=== PATIENT | female | born 1995 | race Caucasian/White ===

== ENCOUNTER 2018-08-09 14:00 | Outpatient (REF) | payer BC, SELFPAY ==
[2018-08-10 14:27] LABS: Chlamydia Result Negative; GC Result Negative; Specimen Description URINE
== END 2018-08-09 14:20 ==
LOC: LBN 14:00
PROVIDERS: Visit Provider Nurse Practitioner Family
DX: Z11.3 Encounter for screening for infections with a predominantly sexual mode of transmission (principal)
CPT/HCPCS: 87491; 87591

== ENCOUNTER 2019-11-08 07:33 | Outpatient (CLI) | payer OTHER, SELFPAY ==
[2019-11-08 08:04] LABS: HCT 42.5 % (36.0-46.0); HGB 13.8 g/dL (12.0-15.5); Mean Corp. HGB Concentration 32.5 g/dL (32.0-36.0); Mean Corpuscular Hemoglobin 30.7 pg (27.0-33.0); Mean Corpuscular Volume 94.4 fL (80-95); Mean Platelet Volume 10.8 fL (8.0-11.0); Platelet Count 224 x1000/uL (130-400); RBC Distribution Width 13.6 % (11.7-14.6); White Blood Cell Count 4.83 k/cumm (4.4-10.8)
[2019-11-08 08:48] LABS: Anion Gap 10.6 mmol/L (3-11); BUN 16 mg/dL (7-18); CO2 27.4 mmol/L (21.0-32.0); CREATININE 0.97 mg/dL (0.55-1.02); Calcium 8.6 mg/dL (8.5-10.1); Chloride 106 mmol/L (98-107); Glucose 91 mg/dL (74-106); Potassium 4.4 mmol/L (3.5-5.1); Sodium 144 mmol/L (136-145)
== END 2019-11-08 07:53 ==
PROVIDERS: PCP Student in an Organized Health Care Education/Training Program; Visit Provider Student in an Organized Health Care Education/Training Program
DX: R79.89 Other specified abnormal findings of blood chemistry (principal); Z86.2 Personal history of diseases of the blood and blood-forming organs and certain disorders involving the immune mechanism
CPT/HCPCS: 36415; 80048; 85027

== ENCOUNTER 2020-09-24 02:54 | Outpatient (CLI) | payer OTHER, SELFPAY ==
[2020-09-26 15:56] LABS: COVID-19 RT-PCR UVMMC Result Negative (Negative)
== END 2020-09-24 03:14 ==
PROVIDERS: PCP Student in an Organized Health Care Education/Training Program; Visit Provider Student in an Organized Health Care Education/Training Program
DX: Z11.59 Encounter for screening for other viral diseases (principal); Z01.818 Encounter for other preprocedural examination
CPT/HCPCS: U0003

== ENCOUNTER 2020-09-29 08:16 | Day surgery (SDC) | payer OTHER, SELFPAY ==
[2020-09-29 08:30] VITALS: BP 140/69; PULSE 87; RESP 18; TEMP 36.5; O2SAT 100
[2020-09-29] MEDS: Lactated Ringers 1,000 ML 80 ML IV (09:03)
--- NOTE | 2020-09-29 09:35 | W.PREOPHP ---
Date of service: 09/29/20 Time of Service: 09:39 History of Present Illness History of Present Illness Chief Complaint: Right Carpal Tunnel Syndrome Narrative: Rosaura is a 25yo who has been previously diagnosed with carpal tunnel syndrome bialterally. She has failed conservative options and desired to proceed with right then left carpal tunnel release. She has had no change to her health. No chest pain or shortness of breath. No sick contacts. COVID-19 test negative. Review of Systems All systems reviewed & are unremarkable except as noted in HPI and below PFSH Medical History Bilateral carpal tunnel syndrome Bilateral wrist pain Acute on chronic; Hx wearing wrist splints overnight. 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 B/L, R>>L. Chronic nonsuppurative otitis media Hypertension IUD surveillance (~08/30/18) Mirena .. Placed and followed by [facility] (good relationship with Nia Cardenas). Obesity Long Hx weight gain .. recent year of weight watchers has been successful, continuing. Surgical History Adenoidectomy History of wisdom tooth extraction Myringotomy w/ PE (pressure equalizing) tubes Family History Father Diabetes ESRD (end stage renal disease) on dialysis Renal cancer Social History Smoking/Tobacco Use Status: Never Smoking risk assessment performed?: Yes Alcohol Intake: current Alcohol Intake frequency: a few times a month Alcohol type: beer, wine and hard liquor Drug use: Never Substance use type: does not use Caregiver/Support person: No Household members: significant other Communication Needs: None current occupation: [employer] Do you think of yourself as: straight/heterosexual Current gender identity: female What type of physical activity do you participate in: none Duration: 30-45 minutes/day Frequency: 1-2 times per week Seatbelt use: always Water heater temp set <120 deg: Yes Working smoke detector in home: Yes Fire extinguisher in home: Yes Carbon monox detector in home: Yes Firearms in home: Yes Firearms unloaded and locked: Yes Do you feel safe at home: Yes Do you feel safe in your relationship?: Yes Female Reproductive History Menstrual control method: none and progestin IUCD (Mirena inserted by Terri LOPEZ [id number] EXP=11/2020) History History 0 Para Hx # Term Pregnancies Multiple births Hx # Pregnancies Ectopic pregnancies AB induced Hx Number of Living Children AB spontaneous Meds Home Medications and Allergies Home Medications Medication Instructions Recorded Confirmed Type multivitamin [Daily Multi-Vitamin] 1 ea PO DAILY 07/08/15 09/29/20 History levonorgestrel 20 mcg/24 hours (6 1 insert IY ONCE #1 each 08/30/18 09/29/20 Rx yrs) 52 mg intrauterine device nystatin 100,000 unit/gram topical 1 applic TP BID PRN gm 01/27/20 09/29/20 History ointment lisinopril 5 mg tablet 2.5 mg PO DAILY #90 tab 05/29/20 09/29/20 Rx Allergies Allergy/AdvReac Type Severity Reaction Status Date / Time clarithromycin [From Biaxin] Allergy A CHILD Verified 09/29/20 08:35 Exam Const General: cooperative, comfortable and no acute distress Nutritional Appearance: obese morbidly obese Orientation: alert, awake and oriented x3 Resp Auscultation: clear to auscultation bilaterally Cardio Rate: regular rate Rhythm: regular rhythm Extrem Other: Right wrist is without masses. No leasions or rashes. No atrophy. Decreased sensation in median nerve distribution. Results Last Vital Signs Temp 36.5 C 09/29/20 08:30 Pulse 87 09/29/20 08:30 Resp 18 09/29/20 08:30 BP 140/69 09/29/20 08:30 Pulse Ox 100 09/29/20 08:30
--- NOTE | 2020-09-29 09:44 | W.PM.DSUDISC ---
Discharge Plan Disposition Patient Disposition: HOME Condition: Good Discharge Details Reason For Visit: Right Carpal Tunnel Syndrome Attending Provider: Prasad Franco Primary Care Provider: Ester Vaz Home Meds and New Rx's Prescriptions: New acetaminophen 500 mg tablet 1,000 mg PO Q8H PRN (Reason: pain) Qty: 60 RF: 3 ibuprofen 600 mg tablet 600 mg PO TID PRN (Reason: pain) Qty: 30 RF: 3 Continued Mirena 20 mcg/24 hr (5 years) intrauterine device 1 insert IY ONCE Qty: 1 RF: 0 lisinopril 5 mg tablet 2.5 mg PO DAILY Qty: 90 RF: 3 nystatin 100,000 unit/gram ointment 1 applic TP BID PRNRF: 0 multivitamin [Daily Multi-Vitamin] 1 EACH tablet 1 ea PO DAILY RF: 0 Discharge Instructions Stand Alone Forms: Joan Martinez. Tunnel Release, DSU Post op Instructions Referrals: Prasad Franco MD [ [facility] STAFF PHYSICIAN] - Activity:: Elevate Remove Dressings/Wound Care:: 72 hours Shower/Bathe:: 72 hours Discharge Orders Discharge Orders: Discharge Order (Routine); Ordered 09/29/20 Ordered By: Prasad Franco Discharge Data Discharge Date/Time-TO BE ENTERED AT DEPARTURE: 09/29/20 10:58 Discharge Comment: Pt's belongings sent home w/ pt. DS: Diagnosis Discharge Diagnosis (1) Bilateral carpal tunnel syndrome: Status: Acute
[2020-09-29] MEDS: Sodium Bicarbonate 50 MEQ/50 ML VIAL (10:04)
[2020-09-29 10:45] VITALS: BP 141/69; PULSE 73; RESP 18; TEMP 36.7; O2SAT 100
--- NOTE | 2020-09-29 11:22 | ROE_ITS ---
Date of service: 09/29/20 Time of Service: 10:02 Operative Note Operative Note DATE OF PROCEDURE: 09/29/20 PRE-OP DIAGNOSIS: Right Carpal Tunnel Syndrome POST-OP DIAGNOSIS: same PROCEDURE: Right Endoscopic Carpal Tunnel Release SURGEON: Prasad Franco ANESTHESIA: GETVira ESTIMATED BLOOD LOSS: 0 PATHOLOGY: none sent TOURNIQUET TIME: 5 COMPLICATIONS: None Patient was transported to: same day Patient's condition: stable Indications: I have seen Rosaura in clinic for symptoms of carpal tunnel syndrome. The numbness, tingling, and pain limited function. Clinical exam findings confirmed the diagnosis of carpal tunnel syndrome. Nonoperative measures such as bracing, time, activity modifications had been tried but disability and pain persisted. I discussed carpal tunnel release with the patient. I reviewed the risks of the procedure to include, but not limited to, bleeding, infection, pain, stiffness, incomplete release, damage to nerves or vessels, persistent numbness, recurrence. Despite these risks, the patient elected to proceed. Findings: There was tightened carpal tunnel. This was dilated and released successfully with the endoscopic with increased space within the tunnel. The antebrachial fascia was released proximally freeing the median nerve at the wrist. Procedure Description: Rosaura was greeted in the preoperative holding area where the correct side was identified and marked. The consent was reviewed with the patient and signed. The history and physical was updated. All questions were answered. She was taken back to the operating room. The patient was placed into the supine position on the operating room table with the right arm on an arm board. A nonsterile tourniquet was placed high onto the arm. All bony prominences were well padded. Prophylactic antibiotics in the form of Cefazolin were admini stered. The right arm was then prepped with Chloraprep and draped in a standard fashion with stockinette and extremity drape. A timeout to confirm correct identity, side and site, procedure, allergies, anesthesia, and medical concerns was performed. The surgical site was marked in the volar wrist creases in line with the radial border of the fourth ray. This area was anesthetized with approximately 6cc of 1% Lidocaine. The limb was then exsanguinated with an Esmarch. The skin was incised with a 15 blade, approximately 1cm. The skin only was cut and the deeper tissue was dissected bluntly with a tenotomy scissor, avoiding passing nerve and venous structures. The fascia was penetrated and opened bluntly. A two-prong skin hook was placed under this proximal fascial edge. A series of hamate finders were used to identify and dilate the carpal tunnel. Synovial elevator was used to free synovial attachments to the underside of the transverse carpal ligament. My thumb was kept in the palm to valeriano the distal extent of the carpal tunnel and correctly position the hand. The Microaire endoscope was inserted without difficulty and without resistance. Excellent visualization showed horizontally running fibers of the transverse carpal ligament (TCL). The distal extent of the TCL was visualized and the end of the scope palpated with the thumb. The blade was elevated and withdrawn from distal to proximal. The TCL was split into two flaps. The endoscope was reinserted to confirm complete release and any remnant ligament was incised. The scope was withdrawn and the proximal aspect of the carpal tunnel was grossly inspected and appeared release with the median nerve visible. The antebrachial fascia at the level of the wrist was then freed from the overlying skin and then the underlying median nerve with blunt dissection. This was transected longitudinally for about 3cm proximal to the wrist incision. The wound was then irrigated with easy flow of irrigant distally and proximally. The incision was closed with a single 4-0 Nylon suture. The wound was dressed with Xeroform, Gauze, Kerlix and Juanito. The tourniquet was deflated with the initial dressing and held with some pressure. Blood flow returned easily to all digits with capillary refill less than 2 seconds. The patient tolerated the procedure well and was returned to the Same Day Surgery area in a stable condition suffering no known complication.
== END 2020-09-29 10:58 | disposition home or self-care (01) ==
PROVIDERS: PCP Student in an Organized Health Care Education/Training Program; Visit Provider Student in an Organized Health Care Education/Training Program
PROC: 01N54ZZ Release Median Nerve, Percutaneous Endoscopic Approach (ICD-10-PCS; CPT 29848; principal; 2020-09-29 10:30)
DX: G56.01 Carpal tunnel syndrome, right upper limb (principal)
CPT/HCPCS: 29848; J2001

== ENCOUNTER 2020-10-02 03:35 | Outpatient (CLI) | payer OTHER, SELFPAY ==
[2020-10-03 14:05] LABS: COVID-19 RT-PCR UVMMC Result Negative (Negative)
== END 2020-10-02 03:55 ==
PROVIDERS: PCP Student in an Organized Health Care Education/Training Program; Visit Provider Student in an Organized Health Care Education/Training Program
DX: Z11.52 Encounter for screening for COVID-19 (principal); Z01.818 Encounter for other preprocedural examination
CPT/HCPCS: U0003

== ENCOUNTER 2020-10-07 06:15 | Day surgery (SDC) | payer OTHER, SELFPAY ==
[2020-10-07 06:32] VITALS: BP 129/81; PULSE 86; RESP 16; TEMP 36.7; O2SAT 100
[2020-10-07] MEDS: Lactated Ringers 1,000 ML 80 ML IV (07:00)
--- NOTE | 2020-10-07 07:22 | HPE_ITS ---
Date of service: 10/07/20 Time of Service: 07:22 Assessment and Plan Assessment and plan (1) Bilateral carpal tunnel syndrome: Status: Acute Assessment and plan: Rosaura is a 25-year-old who has bilateral carpal tunnel syndrome. She has previously discussed this with me and we decided to proceed with bilateral carpal tunnel releases. She had a successful right carpal tunnel release a little over a week ago. She is looking forward to proceeding with the left side. I once again reviewed the risk of the procedure to include bleeding, infection, pain, stiffness, damage nerves and vessels, rachid ge to muscle and tendons, incomplete release, recurrence. Despite these risks, she elects to proceed. History of Present Illness History of Present Illness Chief Complaint: Left Carpal Tunnel Syndrome Narrative: Rosaura is a 25-year-old who I have seen previously for bilateral carpal tunnel syndrome. She elected to proceed with carpal tunnel releases. She had a successful right carpal tunnel release about 10 days ago. She is now looking forward to proceeding with the left side. She has no concerns. She had no issues with the left side. She denies any current issues with the wound. She had no complications anesthesia. She denies fevers or chills. Review of Systems All systems reviewed & are unremarkable except as noted in HPI and below PFSH Medical History Bilateral carpal tunnel syndrome Bilateral wrist pain Acute on chronic; Hx wearing wrist splints overnight. 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 B/L, R>>L. Chronic nonsuppurative otitis media Hypertension IUD surveillance (~08/30/18) Mirena .. Placed and followed by [facility] (good relationship with Nia Cardenas). Obesity Long Hx weight gain .. recent year of weight watchers has been successful, continuing. Surgical History Adenoidectomy History of carpal tunnel surgery History of wisdom tooth extraction Myringotomy w/ PE (pressure equalizing) tubes Family History Father Diabetes ESRD (end stage renal disease) on dialysis Renal cancer Social History Smoking/Tobacco Use Status: Never Smoking risk assessment performed?: Yes Alcohol Intake: current Alcohol Intake frequency: a few times a month Alcohol type: beer, wine and hard liquor Drug use: Never Substance use type: does not use Caregiver/Support person: No Household members: significant other Communication Needs: None current occupation: [employer] Do you think of yourself as: straight/heterosexual Current gender identity: female What type of physical activity do you participate in: none Duration: 30-45 minutes/day Frequency: 1-2 times per week Seatbelt use: always Water heater temp set <120 deg: Yes Working smoke detector in home: Yes Fire extinguisher in home: Yes Carbon monox detector in home: Yes Firearms in home: Yes Firearms unloaded and locked: Yes Do you feel safe at home: Yes Do you feel safe in your relationship?: Yes Female Reproductive History Menstrual control method: none and progestin IUCD (Mirena inserted by Terri LOPEZ [id number] EXP=11/2020) History History 0 Para Hx # Term Pregnancies Multiple births Hx # Pregnancies Ectopic pregnancies AB induced Hx Number of Living Children AB spontaneous Meds Home Medications and Allergies Home Medications Medication Instructions Recorded Confirmed Type multivitamin [Daily Multi-Vitamin] 1 ea PO DAILY 07/08/15 10/07/20 History levonorgestrel 20 mcg/24 hours (6 1 insert IY ONCE #1 each 08/30/18 10/07/20 Rx yrs) 52 mg intrauterine device nystatin 100,000 unit/gram topical 1 applic TP BID PRN gm 01/27/20 10/07/20 History ointment lisinopril 5 mg tablet 2.5 mg PO DAILY #90 tab 05/29/20 10/07/20 Rx acetaminophen 1,000 mg PO Q8H PRN #60 tab 09/29/20 10/07/20 Rx ibuprofen 600 mg PO TID PRN #30 tab 09/29/20 10/07/20 Rx Allergies Allergy/AdvReac Type Severity Reaction Status Date / Time clarithromycin [From Biaxin] Allergy A CHILD Verified 10/07/20 06:42 Exam Const General: cooperative, healthy appearing, comfortable and no acute distress Nutritional Appearance: average body habitus Orientation: alert, awake and oriented x3 Resp Effort & Inspection: normal respiratory effort Auscultation: clear to auscultation bilaterally Cardio Rate: regular rate Rhythm: regular rhythm Results Last Vital Signs Temp 36.7 C 10/07/20 06:32 Pulse 86 10/07/20 06:32 Resp 16 10/07/20 06:32 BP 129/81 10/07/20 06:32 Pulse Ox 100 10/07/20 06:32
--- NOTE | 2020-10-07 07:25 | PDOC.DSDIS_ITS ---
Discharge Plan Disposition Patient Disposition: HOME Condition: Good Discharge Details Reason For Visit: Left Carpal Tunnel Syndrome Attending Provider: Prasad Franco Primary Care Provider: Ester Vaz Home Meds and New Rx's Prescriptions: No Action Mirena 20 mcg/24 hr (5 years) intrauterine device 1 insert IY ONCE Qty: 1 RF: 0 lisinopril 5 mg tablet 2.5 mg PO DAILY Qty: 90 RF: 3 nystatin 100,000 unit/gram ointment 1 applic TP BID PRNRF: 0 multivitamin [Daily Multi-Vitamin] 1 EACH tablet 1 ea PO DAILY RF: 0 acetaminophen 500 mg tablet 1,000 mg PO Q8H PRN (Reason: pain) Qty: 60 RF: 3 ibuprofen 600 mg tablet 600 mg PO TID PRN (Reason: pain) Qty: 30 RF: 3 Discharge Instructions Stand Alone Forms: Joan Regalado Tunnel Release Referrals: Prasad Franco MD [ [facility] ST[facility]FF PHYSICIAN] - Activity:: Elevate Remove Dressings/Wound Care:: 72 hours Shower/Bathe:: 72 hours Diet:: As Tolerated Discharge Orders Discharge Orders: Discharge Order (Routine); Ordered 10/07/20 Ordered By: Prasad Franco DS: Diagnosis Discharge Diagnosis (1) Bilateral carpal tunnel syndrome: Status: Acute
[2020-10-07] MEDS: Sodium Bicarbonate 50 MEQ/50 ML VIAL (07:33)
--- NOTE | 2020-10-07 08:01 | W.PM.OP ---
Date of service: 10/07/20 Time of Service: 07:44 Operative Note Operative Note DATE OF PROCEDURE: 10/07/20 PRE-OP DIAGNOSIS: Left carpal tunnel syndrome POST-OP DIAGNOSIS: same PROCEDURE: Left Endoscopic Carpal Tunnel Release SURGEON: Prasad Franco ANESTHESIA: GETVira ESTIMATED BLOOD LOSS: 0 PATHOLOGY: none sent TOURNIQUET TIME: 6 COMPLICATIONS: None Patient was transported to: same day Patient's condition: stable Indications: I have seen Rosaura in clinic for symptoms of carpal tunnel syndrome. The numbness, tingling, and pain limited function. Clinical exam findings with nerve conduction tests confirmed the diagnosis of carpal tunnel syndrome. Nonoperative measures such as bracing, time, activity modifications had been tried but disability and pain persisted. I discussed carpal tunnel release with the patient. I reviewed the risks of the procedure to include, but not limited to, bleeding, infection, pain, stiffness, incomplete release, damage to nerves or vessels, persistent numbness, recurrence. Despite these risks, the patient elected to proceed. Findings: There was tightened carpal tunnel. This was dilated and released successfully with the endoscopic with increased space within the tunnel. The antebrachial fascia was released proximally freeing the median nerve at the wrist. Procedure Description: Rosaura was greeted in the preoperative holding area where the correct side was identified and marked. The consent was reviewed with the patient and signed. The history and physical was updated. All questions were answered. She was taken back to the operating room. The patient was placed into the supine position on the operating room table with the left arm on an arm board. A nonsterile tourniquet was placed high onto the arm. All bony prominences were well padded. Prophylactic antibiotics in the form of Cefazolin were administered. The left arm was then prepped with Chloraprep and draped in a standard fashion with stockinette and extremity drape. A timeout to confirm correct identity, side and site, procedure, allergies, anesthesia, and medical concerns was performed. The surgical site was marked in the volar wrist creases in line with the radial border of the fourth ray. This area was anesthetized with approximately 6cc of 1% Lidocaine. The limb was then exsanguinated with an Esmarch. The skin was incised with a 15 blade, approximately 1cm. The skin only was cut and the deeper tissue was dissected bluntly with a tenotomy scissor, avoiding passing nerve and venous structures. The fascia was penetrated and opened bluntly. A two-prong skin hook was placed under this proximal fascial edge. A series of hamate finders were used to identify and dilate the carpal tunnel. Synovial elevator was used to free synovial attachments to the underside of the transverse carpal ligament. My thumb was kept in the palm to valeriano the distal extent of the carpal tunnel and correctly position the hand. The Microaire endoscope was inserted without difficulty and without resistance. Excellent visualization showed horizontally running fibers of the transverse carpal ligament (TCL). The distal extent of the TCL was visualized and the end of the scope palpated with the thumb. The blade was elevated and withdrawn from distal to proximal. The TCL was split into two flaps. The endoscope was reinserted to confirm complete release and any remnant ligament was incised. The scope was withdrawn and the proximal aspect of the carpal tunnel was grossly inspected and appeared release with the median nerve visible. The antebrachial fascia at the level of the wrist was then freed from the overlying skin and then the underlying median nerve with blunt dissection. This was transected longitudinally for about 3cm proximal to the wrist incision. The wound was then irrigated with easy flow of irrigant distally and proximally. The incision was closed with a single 4-0 Nylon suture. The wound was dressed with Xeroform, Gauze, Kerlix and Juanito. The tourniquet was deflated with the initial dressing and held with some pressure. Blood flow returned easily to all digits with capillary refill less than 2 seconds. The patient tolerated the procedure well and was returned to the Same Day Surgery area in a stable condition suffering no known complication.
[2020-10-07 08:25] VITALS: BP 101/64; PULSE 78; RESP 16; TEMP 36.1; O2SAT 97
[2020-10-07 08:57] VITALS: BP 99/66; PULSE 86; RESP 16; TEMP 36.3; O2SAT 96
[2020-10-07 09:55] VITALS: BP 97/66; PULSE 79; RESP 16; TEMP 36.5; O2SAT 97
== END 2020-10-07 10:18 | disposition home or self-care (01) ==
PROVIDERS: PCP Student in an Organized Health Care Education/Training Program; Visit Provider Student in an Organized Health Care Education/Training Program
PROC: 01N54ZZ Release Median Nerve, Percutaneous Endoscopic Approach (ICD-10-PCS; CPT 29848; principal; 2020-10-07 07:30)
DX: G56.02 Carpal tunnel syndrome, left upper limb (principal)
CPT/HCPCS: 29848; 81025; J0690; J2001; J2405; J2704

== ENCOUNTER 2020-12-08 16:00 | Outpatient (REF) | payer OTHER, SELFPAY ==
--- NOTE | 2020-12-08 15:30 | PAPFT_PTH ---
PATIENT: Rosaura Lennon LOC: [facility] U#:[id number] AGE/SX: 25/F ROOM: RE12/08/[address]: Nia Cardenas NP : [id number] BED: DIS: 12/08/2020 SPEC #: [id number] RECD: 12/08/20 17:50 STATUS: CHAR FULTON #: [id number] LIZETH: 12/08/20 15:[address]: Nia Cardenas NP DEPT: [facility] Cytology RECD BY: María Lim ENTERED: 12/08/20 17:50 SP TYPE: PAPFT OTHR DR: Ester Vaz, DO Tissues: 1 - CX/ENDOCX FOR PAP SMEARS Procedures: PAP THIN PREP/UVM Screening Comments: [id number]
== END 2020-12-08 16:01 | disposition home or self-care (01) ==
LOC: LBN 16:00
PROVIDERS: PCP Student in an Organized Health Care Education/Training Program; Visit Provider Nurse Practitioner Women's Health
DX: Z12.4 Encounter for screening for malignant neoplasm of cervix (principal)
CPT/HCPCS: 88142

== ENCOUNTER 2021-01-15 01:42 | Outpatient (CLI) | payer OTHER, SELFPAY ==
[2021-01-15 08:08] LABS: Calculated LDL 162 mg/dL (<100); Cholesterol 231 mg/dL (<200); HDL Cholesterol 42 mg/dL (40-60); TSH (W/Ref FT4) 1.85 uIU/mL (0.36-3.74); Triglyceride 135 mg/dL (<150)
== END 2021-01-15 01:43 | disposition home or self-care (01) ==
LOC: LBO 01:42
PROVIDERS: PCP Student in an Organized Health Care Education/Training Program; Visit Provider Student in an Organized Health Care Education/Training Program
DX: R53.83 Other fatigue (principal); Z13.220 Encounter for screening for lipoid disorders
CPT/HCPCS: 36415; 80061; 84443

== ENCOUNTER 2021-10-01 19:22 | Outpatient (REF) | payer BC, SELFPAY | END 2021-10-01 19:23 | disposition home or self-care (01) | LOC: LBN 19:22 | PROVIDERS: PCP Student in an Organized Health Care Education/Training Program; Visit Provider Nurse Practitioner Family | DX: J02.9 Acute pharyngitis, unspecified (principal) | CPT/HCPCS: 87070 ==

== ENCOUNTER 2022-08-26 11:44 | Outpatient (REF) | payer BC, SELFPAY | END 2022-08-26 11:45 | disposition home or self-care (01) | LOC: LBN 11:44 | PROVIDERS: PCP Student in an Organized Health Care Education/Training Program; Visit Provider Student in an Organized Health Care Education/Training Program | DX: J02.9 Acute pharyngitis, unspecified (principal) | CPT/HCPCS: 87070 ==

== ENCOUNTER 2024-08-19 20:23 | Emergency (ER) | payer BC, SELFPAY ==
--- NOTE | 2024-08-19 20:15 | RT.EKG_ITS ---
APPROVED REPORT Exam: Resting ECG Reason for Exam: chest pain Patient Location: E HR:96 bpm ECG Measurements Heart Rate 96 AXIS AR 145 P 44 QRSd 95 QRS -5 QT 381 T 0 QTc 482 Conclusion Sinus rhythm...normal P axis, V-rate 60- 99 Low voltage, precordial leads...precordial leads <1.0mV Nonspecific T abnormalities, anterior leads...T <-0.10mV, V2-V4 I have reviewed and interpreted ECG and agree with software generated interpretation.
[2024-08-19 20:26] VITALS: BP 143/73; PULSE 98; RESP 15; TEMP 36.6; O2SAT 98
--- NOTE | 2024-08-19 20:30 | DI.RAD_ITS ---
Exam(s) XR CHEST 2V PA LATERAL EXAM: XR CHEST 2V PA LATERAL CLINICAL HISTORY: R sided CP after smoking TECHNIQUE: 2D digital imaging was performed of the chest. Two images were obtained. PA and lateral views were obtained. COMPARISON: No exams were available for comparison FINDINGS: MEDIASTINUM: Normal. HEART: Normal. PULMONARY VASCULATURE: Normal. LUNGS: Clear. PLEURAL SPACE: No pleural effusion or pneumothorax. BONE:Within normal limits for the patient's age. OTHER FINDINGS:Normal. IMPRESSION: No acute pulmonary findings. DATA REPOSITORY: RADIATION DOSE DELIVERED:
--- NOTE | 2024-08-19 20:34 | ED.GENADUL_ITS ---
Discharge Plan Disposition Patient Disposition: Home Condition: Stable Discharge Details Clinical Impression: Costochondritis Primary Care Provider: Ester Vaz ED Provider: Tam White Home Meds and New Rx's Prescriptions: Continued clotrimazole 1 % cream 1 applic topical BID 28 Days Qty: 30 1RF hydralazine 10 mg tablet 10 mg PO TID PRN (Reason: hypertension, BP > 130/90) Qty: 90 1RF Rx Instructions: Trial if SBP is > 135 and monitor for reduction Classic 28 mg iron- 800 mcg tablet 1 tab PO DAILY nystatin 100,000 unit/gram ointment 1 applic topical TID PRN (Reason: intertrigo) Qty: 30 2RF Rx Instructions: Apply @ breastline. fluticasone propionate 50 mcg/actuation spray,suspension 2 spray intranasal DAILY PRN (Reason: congestion) Qty: 16 2RF Rx Instructions: administer into each nostril Discharge Instructions Instructions: Costochondritis Additional Instructions: You were seen in the emergency department for right-sided chest pain, this was after smoking we did need to get a little bit better, you have tenderness in the area between your ribs, there is no popped lung on your chest x-ray your EKG has nonspecific changes but I think you should repeat this with your primary care provider. Please return for any changes of your chest pain especially dizziness, shortness of breath, coughing up of blood, visual changes, near fainting or other emergent concerns, please take Tylenol and ibuprofen as needed for pain, apply gentle heat to the area of pain. Referrals: Ester Vaz DO [Primary Care Provider] - [facility] General Date/Time Provider Initiated Documentation: 08/19/24 20:34 . HPI Narrative: 29 year-old female presents to ED today by POV/ambulating with a chief complaint of R sided chest pain, just after smoking marijuana, radiating around from sternum to back in an intercostal distribution with onset around 1930. Patient endorsed some discomfort with deep breathing for a moment but severity is signifcantly better. Quality described as sharp pain, some tenderness, no radiation to dizzness, hemoptysis, active shortness of breath, heavy chest pain, visual changes, fever, cough. Severity is described as 3/10. Palliating factors include nothing specific attempted. Provoking factors include nothing specific. Events leading up to the incident/Associated Symptoms: Patient does not take OCPs. Patient not anticoagulated. Related Data Home Medications ?Medication ?Instructions ?Recorded ?Confirmed clotrimazole 1 % topical cream 1 applic topical BID 4 weeks #30 07/11/23 08/19/24 grams vits no.126-ferrous fum 1 tab PO DAILY 01/08/24 08/19/24 28 mg iron-folic acid 800 mcg tablet (Classic ) fluticasone propionate 50 2 spray intranasal DAILY PRN 06/06/24 08/19/24 mcg/actuation nasal congestion #16 grams spray,suspension nystatin 100,000 unit/gram topical 1 applic topical TID PRN 06/06/24 08/19/24 ointment intertrigo #30 grams hydralazine 10 mg tablet 10 mg PO TID PRN hypertension, BP 07/05/24 08/19/24 > 130/90 #90 tabs Previous Rx's ?Medication ?Instructions ?Recorded clotrimazole 1 % topical cream 1 applic topical BID 4 weeks #30 07/11/23 grams fluticasone propionate 50 2 spray intranasal DAILY PRN 06/06/24 mcg/actuation nasal congestion #16 grams spray,suspension nystatin 100,000 unit/gram topical 1 applic topical TID PRN 06/06/24 ointment intertrigo #30 grams hydralazine 10 mg tablet 10 mg PO TID PRN hypertension, BP 07/05/24 > 130/90 #90 tabs Allergies Allergy/AdvReac Type Severity Reaction Status Date / Time clarithromycin (From Biaxin) Allergy A CHILD Verified 08/19/24 20:32 General Stated Complaint: Chest Pain HARIS: 3 Review of Systems All systems reviewed & are unremarkable except as noted in HPI and below Exam Narrative Exam Narrative: GENERAL APPEARANCE: Well-nourished, non-toxic, awake and alert, atraumatic, no acute distress. SKIN: Warm, pink, dry, intact, without rashes/lesions/ulcerations. HEAD: Normocephalic, atraumatic, normal hair distribution for gender/age. EYES: Normal conjunctiva, no exudates on lids/lashes. ENT: Nares patent, no circumoral cyanosis, no facial swelling NECK: Supple, trachea midline, painless cervical ROM. LUNGS/CHEST: Lungs CTA bilaterally, non-labored respirations, normal A/P diameter, symmetrical expansion, no chest wall deformity, mild tenderness in the vertebral costal junction the mid right ribs and intercostal distribution HEART (CV/PV): Regular rate and rhythm without murmur, no peripheral edema, no JVD. ABDOMEN: Soft, non-distended, no guarding. MSK: Normal ROM, no swelling/deformity to bilateral UEs or LEs, moving all extremities without weakness, no cyanosis, spine midline without tenderness, normal curvature. NEURO: Mental Status AAOx4 - alert to person, place, time, events No facial droop, no forehead involvement. Motor: No focal weakness - strength 5/5 in bilateral UEs and LEs, proximal and distal, symmetric. Sensory: sensation intact to light touch globally. Gait normal: patient ambulated without ataxia into ED room. PSYCH: euthymic, cooperative, pleasant, appropriate speech Course Vital Signs Vital signs: Vital Signs Temperature 36.6 C 08/19/24 20:26 Pulse 98 H 08/19/24 20:26 Respiratory Rate 15 08/19/24 20:26 Blood Pressure 143/73 H 08/19/24 20:26 Pulse Oximetry 98 08/19/24 20:26 Temperature 36.6 C 08/19/24 20:26 Pulse 98 H 08/19/24 20:26 Respiratory Rate 15 08/19/24 20:26 Respiratory Effort Normal 08/19/24 20:31 Blood Pressure 143/73 H 08/19/24 20:26 Blood Pressure Position Sitting 08/19/24 20:26 Pulse Oximetry 98 08/19/24 20:26 Medical Decision Making This dictation utilizes [id number] dictation software and may contain unedited grammatical errors. 29 year-old female presents to ED today by POV/ambulating with a chief complaint of R sided chest pain, just after smoking marijuana, radiating around from sternum to back in an intercostal distribution with onset around 1930. Patient endorsed some discomfort with deep breathing for a moment but severity is signifcantly better. Quality described as sharp pain, some tenderness, no radiation to dizzness, hemoptysis, active shortness of breath, heavy chest pain, visual changes, fever, cough. Severity is described as 3/10. Palliating factors include nothing specific attempted. Provoking factors include nothing specific. Events leading up to the incident/Associated Symptoms: Patient does not take OCPs. Patients' medical history: Hypertension. Family and social history: Endorses marijuana use, denies tobacco use. Pertinent exam findings / vital signs include pleuritic tenderness radiating around the right axilla to the posterior vertebral costal junction, lungs CTA, no tachycardia, benign cardiac exam. Differential / pathologies of concern include costochondritis, unlikely ACS, unlikely PE. Consider pleurisy or pneumothorax Diagnostic studies of: -EKG, chest x-ray. -EKG shows sinus rhythm at 96 bpm, P waves followed by narrow complex QRS with questionable left axis deviation, some nonspecific T wave inversions but no overt ST depressions or reciprocal elevations, no priors to compare -Chest x-ray shows no pneumothorax, no other abnormality Interventions of: -Tylenol & toradol PO. ED Course/Assessment/Plan: 29-year-old female presents with some mild pleuritic intercostal chest pain after smoking marijuana, has no cardiac risk factors, does have some T wave abnormalities. EKG but this is nonspecific. HERE score 1- just with risk factor in a 29 y/o F, patient is making lifestyle changes and not needing HTN meds anymore, do not feel the story supports troponin testing, R-sided, pleuritic, in an specific intercostal space, after smoking marijuana.. Findings not consistent with ACS, PE, pneumothorax, likely represents costochondritis, I recommend the patient follow-up with a repeat EKG at her next primary care visit. Disposition of costochondritis. Patient verbalized understanding of the plan and return to ED criteria and engaged in shared decision making. Medical Records Medical records reviewed: Yes I reviewed the patient's medical records. Imaging Data Radiologic Study: Attestation: I personally reviewed and interpreted this imaging study as follows: Imaging: X-Ray Radiologist's impression: Exam: XR Chest Exam date and time: 08/19/2024 8:59 PM Age: 29 years old Clinical indication: Right-sided; Patient HX: R sided chest pain after smoking, pneumonia 2 weeks ago completed antibiotic TECHNIQUE: Imaging protocol: Radiologic exam of the chest. Views: 2 views. COMPARISON: No relevant prior studies available. FINDINGS: Lungs: Unremarkable. No consolidation. Pleural spaces: Unremarkable. No pleural effusion. No pneumothorax. Heart/Mediastinum: Unremarkable. No cardiomegaly. Bones/joints: Unremarkable. IMPRESSION: No acute findings. Dictated and Authenticated by: Brett Pritchard MD. Quality:SDOH Health Related Social Needs: No Data to Display PFSH All Active Problems (Updated 08/19/24 @ 21:15 by CAYETANO Tejeda) Costochondritis (Acute) Well woman exam with routine gynecological exam (Acute) Hypertension (Chronic) History of otitis media (Acute) Congestion of left ear (Acute) Acute sore throat (Acute) Insurance coverage problems (Acute) Between insurance coverage; meeting with cc and/or caridad. 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 Hx [employer] @ min wage and parental strain. Mo is busy @ work, unable to join for wedding planning, but going on a vacation.. Tinea cruris (Acute) COVID-19 (Acute) Nausea (Acute) with covid Hx of eczema (Acute) rt wrist, annular Poor sleep (Acute) Temporal mandibular joint disorder (Acute) Hyperlipidemia, unspecified (Acute) Fatigue (Acute) Intertrigo (Acute) Nystatin & Appl-CiderV helping! Hx abd rash, actually calm now, but Hx itchiness/redness/rawness. Tx with OTC baby-bottom ointment .. Continue, but trial zinc oxide and nystatin ointment. 04/2019, [place] Diarrhea (Acute) Bilateral wrist pain (Acute) Acute on chronic; Hx wearing wrist splints overnight. 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 B/L, R>>L. Obesity (Chronic) Long Hx weight gain .. recent year of weight watchers has been successful, continuing. Medical History Skin rash bug related post wedding? 05/18/21 Hx of motion sickness Hx car, boat sickness .. had to cancel fishing trip last year 2' N/V for family ... Requesting Rx for this summer's trip. Trial scop patches [ ] . Dramamine PRN severe symptoms (but prefers non-drowsy remedy). Chronic nonsuppurative otitis media Surgical History Left carpal tunnel syndrome S/P ECTR: 10/07/2020 Right carpal tunnel syndrome S/P ECTR: 09/29/2020 History of wisdom tooth extraction Myringotomy w/ PE (pressure equalizing) tubes Adenoidectomy Family History Father Diabetes ESRD (end stage renal disease) on dialysis Renal cancer Social History Smoking/Tobacco Use Status: Former Tobacco Use Smoking risk assessment performed?: Yes Alcohol Intake: current Alcohol Intake frequency: a few times a month Alcohol type: beer, wine and hard liquor Drug use: Never Substance use type: does not use Caregiver/Support person: No Household members: significant other Communication Needs: None current occupation: [employer] Do you think of yourself as: straight/heterosexual Current gender identity: female What type of physical activity do you participate in: other Details: Spinning Duration: 30-45 minutes/day Frequency: 1-2 times per week Seatbelt use: always Water heater temp set <120 deg: Yes Working smoke detector in home: Yes Fire extinguisher in home: Yes Carbon monox detector in home: Yes Firearms in home: Yes Firearms unloaded and locked: Yes Do you feel safe at home: Yes Do you feel safe in your relationship?: Yes Female Reproductive History Menstrual control method: none History History 0 Para Hx # Term Pregnancies Multiple births Hx # Pregnancies Ectopic pregnancies AB induced Hx Number of Living Children AB spontaneous
[2024-08-19 20:36] VITALS: RESP 16
[2024-08-19] MEDS: Acetaminophen 500 MG TAB 1000 MG PO (21:27)
[2024-08-19] MEDS: Ketorolac 10 MG TAB PO (21:27)
[2024-08-19 21:30] VITALS: BP 148/88; PULSE 90; RESP 16; O2SAT 98
--- NOTE | 2024-08-19 21:54 | DI.VRAD_ITS ---
PROCEDURE INFORMATION: Exam: XR Chest Exam date and time: 08/19/2024 8:59 PM Age: 29 years old Clinical indication: Right-sided; Patient HX: R sided chest pain after smoking, pneumonia 2 weeks ago completed antibiotic TECHNIQUE: Imaging protocol: Radiologic exam of the chest. Views: 2 views. COMPARISON: No relevant prior studies available. FINDINGS: Lungs: Unremarkable. No consolidation. Pleural spaces: Unremarkable. No pleural effusion. No pneumothorax. Heart/Mediastinum: Unremarkable. No cardiomegaly. Bones/joints: Unremarkable. IMPRESSION: No acute findings. Dictated and Authenticated by: Brett Pritchard MD. Ordering:CAMPOS Turcios MD
== END 2024-08-19 21:36 | disposition home or self-care (01) ==
PROVIDERS: Emergency Provider Physician Assistant; PCP Student in an Organized Health Care Education/Training Program
DX: M94.0 Chondrocostal junction syndrome [Tietze] (principal); I10 Essential (primary) hypertension; E78.5 Hyperlipidemia, unspecified; F12.90 Cannabis use, unspecified, uncomplicated; Z87.891 Personal history of nicotine dependence
CPT/HCPCS: 81025; 93005; 99285; 71046; 93010; 99284

== ENCOUNTER 2024-09-06 15:55 | Outpatient (CLI) | payer BC, SELFPAY ==
--- NOTE | 2024-09-06 15:45 | RT.EKG_ITS ---
APPROVED REPORT Exam: Resting ECG Reason for Exam: Chest pain Patient Location: O HR:81 bpm ECG Measurements Heart Rate 81 AXIS IA [id number] P [id number] QRSd 96 QRS -1 QT 400 T 10 QTc 465 Conclusion Sinus Rhythm Normal Electrocardiogram
== END 2024-09-06 15:56 | disposition home or self-care (01) ==
LOC: DI.KIM 15:55
PROVIDERS: PCP Student in an Organized Health Care Education/Training Program; Visit Provider Nurse Practitioner Family
DX: R07.9 Chest pain, unspecified (principal)
CPT/HCPCS: 93010

== ENCOUNTER 2024-09-13 12:56 | Outpatient (RCR) | payer BC, SELFPAY ==
--- NOTE | 2024-09-19 08:20 | W.HOLTRPT ---
Date of service: 09/19/24 Time of Service: 08:20 Holter Monitor Report Referring Provider:: Ester Vaz Indications:: Palpitations Holter Monitor Note: This is a 48-hour Holter monitor. Rhythm throughout was sinus with an average heart rate of 74. Minimum was 43, maximum 143 There were no ventricular dysrhythmias There were very rare isolated premature atrial contractions. There was no atrial fibrillation, no high-grade AV block, no pauses greater than 3 seconds. Symptoms were reported which correlated to sinus rhythm in the 80s
== END 2024-09-24 23:59 | disposition home or self-care (01) ==
LOC: CARDOPNVT 12:56
PROVIDERS: PCP Student in an Organized Health Care Education/Training Program; Visit Provider Internal Medicine Cardiovascular Disease
DX: R07.9 Chest pain, unspecified (principal); Z51.89 Encounter for other specified aftercare
CPT/HCPCS: 93225; 93226

== ENCOUNTER 2024-09-20 01:48 | Outpatient (CLI) | payer BC, SELFPAY ==
[2024-09-20 07:15] LABS: HCT 41.4 % (36.0-46.0); HGB 13.6 g/dL (11.2-15.7); MCH 31.1 pg (27.0-33.0); MCHC 32.9 % (32.0-36.0); MCV 95 fL (80-95); MPV 11.2 fL (8.0-11.0); Platelet Count 219 10^3/uL (130-400); RBC 4.38 10^6/uL (3.93-5.22); RDW 13.2 % (11.7-14.6); RDW-SD 46.1 fL; WBC 5.94 10^3/uL (4.4-10.8)
[2024-09-20 07:53] LABS: Calculated LDL 159 mg/dL (<100); Cholesterol 247 mg/dL (<200); HDL Cholesterol 43 mg/dL (40-60); Triglyceride 228 mg/dL (<150)
[2024-09-20 08:11] LABS: Folate > 20.0 ng/mL (8.6-20.0)
[2024-09-20 08:19] LABS: ALT 29 U/L (14-59); AST 17 U/L (15-37); Albumin 3.8 g/dL (3.4-5.0); Alkaline Phosphatase 97 U/L (46-116); BUN 11 mg/dL (7-18); Bilirubin, Total 0.78 mg/dL (0.2-1.0); CREATININE 0.9 mg/dL (0.55-1.02); Chloride 105 mmol/L (98-107); Glucose 110 mg/dL (74-106); Potassium 3.8 mmol/L (3.5-5.1); Sodium 141 mmol/L (136-145); Total Protein 7.2 g/dL (6.4-8.2); Vitamin B12 307 pg/mL (193-986); Vitamin D 25 Total 21.7 ng/mL (30-100)
== END 2024-09-20 01:49 | disposition home or self-care (01) ==
PROVIDERS: Nurse Practitioner Family; PCP Student in an Organized Health Care Education/Training Program; Visit Provider Student in an Organized Health Care Education/Training Program
DX: E78.5 Hyperlipidemia, unspecified (principal); Z13.220 Encounter for screening for lipoid disorders; Z13.9 Encounter for screening, unspecified; I10 Essential (primary) hypertension; R53.83 Other fatigue; Z72.820 Sleep deprivation
CPT/HCPCS: 36415; 80053; 80061; 82306; 85027; 82607; 82746

== ENCOUNTER 2024-09-24 14:40 | Outpatient (REF) | payer BC, SELFPAY ==
--- NOTE | 2024-09-24 14:20 | PAPFT_PTH ---
PATIENT: Rosaura Lennon LOC: [facility] U#:[id number] AGE/SX: 29/F ROOM: RE09/24/[address]: Nia Cardenas NP : [id number] BED: DIS: 09/24/2024 SPEC #: [id number] RECD: 09/24/24 17:29 STATUS: CHAR RELynn #: [id number] LIZETH: 09/24/24 14:[address]: Nia Cardenas NP DEPT: [facility] Cytology RECD BY: María Lim ENTERED: 09/24/24 17:30 SP TYPE: PAPFT OTHR DR: Yuko Kwan APRN Tissues: 1 - CX/ENDOCX FOR PAP SMEARS Procedures: PAP THIN PREP/UVM Screening Comments: [id number]
== END 2024-09-24 14:41 | disposition home or self-care (01) ==
LOC: LBN 14:40
PROVIDERS: PCP Nurse Practitioner Family; Visit Provider Nurse Practitioner Women's Health
DX: R73.09 Other abnormal glucose (principal); R07.82 Intercostal pain; E78.5 Hyperlipidemia, unspecified; E55.9 Vitamin D deficiency, unspecified
CPT/HCPCS: 88142

== ENCOUNTER 2024-09-30 04:08 | Outpatient (CLI) | payer BC, SELFPAY ==
[2024-09-30 14:25] LABS: Hemoglobin A1C 5.3 % (<5.7)
== END 2024-09-30 04:09 | disposition home or self-care (01) ==
LOC: LBO 04:08
PROVIDERS: PCP Nurse Practitioner Family; Referring Provider Nurse Practitioner Family; Visit Provider Nurse Practitioner Family
DX: R73.09 Other abnormal glucose (principal)
CPT/HCPCS: 36415; 83036

== ENCOUNTER 2024-10-25 10:06 | Outpatient (CLI) | payer BC, SELFPAY ==
[2024-10-30 15:47] LABS: Apolipoprotein B, Serum 127 mg/dL (48-124); Beta VLDL Cholesterol Not Detected mg/dL (<15); Beta VLDL Triglycerides Not Detected mg/dL (<15); Cholesterol, Total, CDC 209 mg/dL; Chylomicron Cholesterol 2 mg/dL; Chylomicron Triglycerides 49 mg/dL; HDL Cholesterol, CDC 28 mg/dL (>=50); LDL Cholesterol 126 mg/dL; LDL Triglycerides 79 mg/dL (<=50); Lp(a) Cholesterol 13 mg/dL (<5); LpX Not detected; Triglycerides, CDC 304 mg/dL; VLDL Cholesterol 40 mg/dL (<30); VLDL Triglycerides 153 mg/dL (<120)
== END 2024-10-25 10:07 | disposition home or self-care (01) ==
LOC: LBO 10:06
PROVIDERS: PCP Nurse Practitioner Family; Visit Provider Nurse Practitioner Family
DX: E78.5 Hyperlipidemia, unspecified (principal)
CPT/HCPCS: 36415; 80061; 82172; 82664

== ENCOUNTER 2024-11-12 04:40 | Outpatient (CLI) | payer BC, SELFPAY ==
[2024-11-12 08:37] LABS: Iron 54 ug/dL (50-170); Total Iron Binding Capacity 280 ug/dL (250-450); Transferrin Sat 19 % (15-50)
[2024-11-12 08:42] LABS: Ferritin 115 ng/mL (8-252)
[2024-11-13 10:10] LABS: Hepatitis C Ab w Rflx HCV PCR Negative (Negative)
[2024-11-13 10:27] LABS: HBs Antibody, Quant <3.1 mIU/mL (See Note); Hep B Surface Ab Negative (See Note); Hepatitis B Core Antibody Negative (Negative); Hepatitis B Surface Antigen Negative (Negative)
== END 2024-11-12 04:41 | disposition home or self-care (01) ==
LOC: LBO 04:40
PROVIDERS: PCP Nurse Practitioner Family; Visit Provider Nurse Practitioner Family
DX: K76.0 Fatty (change of) liver, not elsewhere classified (principal)
CPT/HCPCS: 36415; 86704; 86706; 86803; 87340; 82728; 83540; 83550

== ENCOUNTER 2024-11-29 01:01 | Outpatient (CLI) | payer BC, SELFPAY ==
--- NOTE | 2024-12-03 12:05 | W.NUTRFU ---
Date of service: 11/29/24 Time of Service: 12:00 Nutrition Note NOTE: Irais referred for dietary approach for fatty liver as well as support towards her weight loss goal. Lipid metabolism influenced by Jack type for hyperlipoproteinemia. Pt takes vitamin d and vitamin at home (low in August) - in the planning process for . Reviewed with patient that 10% weight loss is great goal to improve liver function and lipids along with many other benefits and less risk during . Suggested milk thistle supplement and she will bring up with provider at her follow up later today. Also highlighted low added sugar, refined starch and especially fructose as a sweetener in products (sodas, processed foods, agave nectar etc...) fructose in whole fruit is ok but limit fruit to lower glycemic choices and aim to avoid fruit juices and dried fruits most of the time. We reviewed getting adequate protein and start early in the day and cut off eating after dinner - get a good fast in from 7pm -7am as a goal at least 80% of the time. We reviewed and highligted high fiber choices, colorful non-starchy veggies, and choosing whole starchy veggies and beans/legumes to get starch - less bread/pasta/dariy. I gave her some macronutrient goals in an email and we reviewed a menu planning resource to plug in her numbers and get suggestions for menus which she can refine per her personal preferences. She has my email/contact number and will reach out with any need for follow up or to get questions answered. Time Spent in Nutritional Counseling and Treatment: 25 min
== END 2024-11-29 01:02 | disposition home or self-care (01) ==
LOC: DS 01:01
PROVIDERS: PCP Nurse Practitioner Family; Visit Provider Dietitian, Registered
DX: K76.0 Fatty (change of) liver, not elsewhere classified (principal)
CPT/HCPCS: 00123; 97802

== ENCOUNTER 2025-05-08 16:45 | Outpatient (CLI) | payer BC, SELFPAY ==
[2025-05-08 18:20] LABS: HCG Quant, Pregnancy 21273 mIU/mL (1-3)
== END 2025-05-08 16:46 | disposition home or self-care (01) ==
LOC: LBO 16:46
PROVIDERS: PCP Nurse Practitioner Family; Visit Provider Advanced Practice Midwife
DX: O20.0 Threatened abortion (principal)
CPT/HCPCS: 36415; 84702

== ENCOUNTER 2025-06-12 04:24 | Outpatient (CLI) | payer BC, SELFPAY ==
[2025-06-12 17:35] LABS: HCG Quant, Pregnancy 930 mIU/mL (1-3)
== END 2025-06-12 04:25 | disposition home or self-care (01) ==
LOC: LBO 04:25
PROVIDERS: PCP Nurse Practitioner Family; Visit Provider Obstetrics & Gynecology
DX: O26.859 Spotting complicating pregnancy, unspecified trimester (principal)
CPT/HCPCS: 36415; 84702

== ENCOUNTER 2025-06-23 04:12 | Outpatient (CLI) | payer BC, SELFPAY ==
[2025-06-23 18:14] LABS: HCG Quant, Pregnancy 80 mIU/mL (1-3)
== END 2025-06-23 04:13 | disposition home or self-care (01) ==
LOC: LBO 04:12
PROVIDERS: Obstetrics & Gynecology; PCP Nurse Practitioner Family; Visit Provider Nurse Practitioner Family
DX: O26.859 Spotting complicating pregnancy, unspecified trimester (principal)
CPT/HCPCS: 36415; 84702